=== PATIENT | male | born 1985 | race Caucasian/White ===

== ENCOUNTER 2023-07-14 22:07 | Emergency (ER) | payer OTHER, SELFPAY ==
[2023-07-14 22:16] VITALS: BP 141/102; PULSE 114; RESP 18; TEMP 36.7; O2SAT 97; BMI 42.8
--- NOTE | 2023-07-14 23:51 | XR_ITS ---
The [address] [address] Patient Name: NAYELI ABERNATHY MRN: [id number] date: 1985 Sex: M Assigned Patient Location: ER Current Patient Location: ER Accession/Order Number: [id number] Exam Date: 07/14/2023 23:58 Report Date: 07/15/2023 00:27 At the request of: MARA DIAS Procedure: XR foot RT min 3V EXAM: XR foot RT min 3V HISTORY: pain at achilles COMPARISON: None. TECHNIQUE: 3 view study FINDINGS: Overall bony architecture normal. There is posterior superior calcaneal bony prominence. Additionally, a small posterior calcaneal enthesophyte is noted. Posterior soft tissue swelling is noted adjacent to both of these findings. There is a 6 mm hypertrophic bony growth off the proximal lateral margin of the first metatarsal, just distal to the proximal articulation of the first and second metatarsals. Other articulations are normal in appearance. 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 Posterior calcaneal enthesophyte. Hypertrophic bony growth off the proximal lateral margin of the first metatarsal. Electronically authenticated by: Jackie DONALD Date: 07/15/2023 00:27
--- NOTE | 2023-07-14 23:52 | ED.LOWEXI1 ---
HPI - Extremity Injury (Lower) General Chief Complaint: Extremity Injury, Lower Stated Complaint: LOWER EXTREMITY PAIN Time Seen by Provider: 07/14/23 23:46 Source: patient Mode of arrival: Wheelchair Limitations: no limitations History of Present Illness HPI Narrative: woke up thursday AM with pain right heel. Not able to recall any injury. pain continues manuel when walking and he came to the ER. No fever or chills. Related Data Home Medications Medication Instructions Recorded Confirmed No Known Home Medications 07/14/23 07/14/23 Allergies Allergy/AdvReac Type Severity Reaction Status Date / Time No Known Drug Allergies Allergy Verified 07/14/23 22:21 Review of Systems ROS Status of ROS 10 or more systems reviewed and unremarkable except as noted in history and below Exam Constitutional Vital Signs, click to edit/add: Last Vital Signs Temp 98.1 F 07/14/23 22:16 Pulse 114 H 07/14/23 22:16 Resp 18 07/14/23 22:16 BP 141/102 H 07/14/23 22:16 Pulse Ox 97 07/14/23 22:16 O2 Del Method Room Air 07/14/23 22:16 Common normals: no apparent distress, oriented x3 and healthy appearing Eye Common normals: EOMs intact bilaterally and conjunctivae normal Respiratory Common normals: normal respiratory effort, no retractions, no use of accessory muscles and clear to auscultation bilaterally Cardio Common normals: regular rate, regular rhythm, S1 normal heart sound and S2 normal heart sound Extremity Other: right Achilles tender. no swelling. faint red area overlying Achilles. No obvious deformity with palpation of the Achilles Neuro Common normals: oriented x3, CN's II-XII intact bilaterally, moves all extremities, no focal motor deficits and no sensory deficits noted Psych Appearance: grossly normal Course Vital Signs Vital signs: Vital Signs Temperature 98.1 F 07/14/23 22:16 Pulse Rate 114 H 07/14/23 22:16 Respiratory Rate 18 07/14/23 22:16 Blood Pressure 141/102 H 07/14/23 22:16 Pulse Oximetry 97 07/14/23 22:16 Oxygen Delivery Method Room Air 07/14/23 22:16 Temperature 98.1 F 07/14/23 22:16 Pulse Rate 114 H 07/14/23 22:16 Respiratory Rate 18 07/14/23 22:16 Blood Pressure 141/102 H 07/14/23 22:16 Pulse Oximetry 97 07/14/23 22:16 Oxygen Delivery Method Room Air 07/14/23 22:16 MDM - Extremity Injury (Lower) MDM Narrative Medical decision making narrative: presents with pain right achilles without known injury. xray findings of bursitis. Patient placed in cam boot and discharged home to follow up with orthopedics Imaging Data foot xray: Radiologist's impression: : XR foot RT min 3V EXAM: XR foot RT min 3V HISTORY: pain at achilles COMPARISON: None. TECHNIQUE: 3 view study FINDINGS: Overall bony architecture normal. There is posterior superior calcaneal bony prominence. Additionally, a small posterior calcaneal enthesophyte is noted. Posterior soft tissue swelling is noted adjacent to both of these findings. There is a 6 mm hypertrophic bony growth off the proximal lateral margin of the first metatarsal, just distal to the proximal articulation of the first and second metatarsals. Other articulations are normal in appearance. 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 Posterior calcaneal enthesophyte. Hypertrophic bony growth off the proximal lateral margin of the first metatarsal. Electronically authenticated by: Jackie DONALD Date: 07/15/2023 00:27 Discharge Plan Discharge Chief Complaint: Extremity Injury, Lower Clinical Impression: Achilles bursitis or tendinitis Patient Disposition: Home, Self-Care Prescriptions / Home Meds: No Action No Known Home Medications Instructions: Achilles Tendinitis (ED) Additional Instructions: follow up with Dr Aldridge this week Stand Alone Forms: Portal Instructions Referrals: Physician,Non-Staff, MD [Primary Care Provider] - 1 week
[2023-07-15 00:16] LABS: Basophils Absolute Auto 0.1 10^3/uL (0.0-0.1); Basophils Percent Auto 0.4 % (0.2-2.0); Eosinophils Absolute Auto 0.1 10^3/uL (0.0-0.7); Eosinophils Percent Auto 0.7 % (0.9-7.0); Hematocrit 45.5 % (42.0-54.0); Hemoglobin 15.2 g/dL (14.0-18.0); Immature Granulocytes Abs Auto 0.03 10^3/uL (0.00-0.03); Immature Granulocytes Pct Auto 0.3 % (0.0-0.5); Lymphocytes Absolute Auto 2.8 10^3/uL (1.2-3.8); Lymphocytes Percent Auto 23.6 % (20.5-60.0); Mean Corpuscular HGB Conc 33.4 g/dL (29.9-35.2); Mean Corpuscular Hemoglobin 29.6 pg (25.9-34.0); Mean Corpuscular Volume 88.7 fL (80.0-94.0); Mean Platelet Volume 10.5 fL (9.5-13.5); Monocytes Percent Auto 8.1 % (1.7-12.0); Neutrophils Absolute Auto 7.9 10^3/uL (1.4-6.5); Neutrophils Percent Auto 66.9 % (43.0-75.0); Platelet Count 292 10^3/uL (150-450); Red Blood Count 5.13 10^6/uL (4.70-6.10); Red Cell Distribution Width 12.8 % (11.0-15.0); White Blood Count 11.8 10^3/uL (4.0-11.0)
[2023-07-15 00:24] LABS: Erythrocyte Sedimentation Rate 42 mm/hr (<=15)
[2023-07-15] MEDS: PREDNISONE 20 MG TABLET 60 MG PO (00:24)
[2023-07-15 00:26] LABS: Anion Gap 11.1; BUN Creatinine Ratio 10.9; C Reactive Protein 2.9 mg/dL (<=1.0); Calcium 8.8 mg/dL (8.5-10.1); Carbon Dioxide 30.8 mmol/L (21.0-32.0); Chloride 104 mmol/L (98-107); Estimated GFR (African America >60 (>=60); Estimated GFR (Non-African Ame >60 (>=60); Glucose 100 mg/dL (74-106); Potassium 3.9 mmol/L (3.5-5.1); Sodium 142 mmol/L (136-145)
== END 2023-07-15 01:46 | disposition home or self-care (01) ==
PROVIDERS: Emergency Provider Internal Medicine
DX: M71.9 Bursopathy, unspecified (principal)
CPT/HCPCS: 36415; 73630; 80048; 85025; 85652; 86140; 99284